=== PATIENT | male | born 1990 | race African-American/Black ===

== ENCOUNTER 2017-06-01 13:04 | Emergency (ER) | payer SELFPAY ==
[2017-06-01 13:19] VITALS: BP 134/77
[2017-06-01] MEDS ORDERED: MUPI15CR TP (13:30)
[2017-06-01] MEDS ORDERED: ACYC800T PO (13:30)
[2017-06-01] MEDS ORDERED: DIPHTH,PERTUSS(ACELL),TET TOX 0.5 ML DISP.SYRIN. VAX IM ONE (13:30)
[2017-06-01] MEDS ORDERED: SULF1TAB24 PO (13:30)
--- NOTE | 2017-06-01 13:31 | PHYS DOC ---
Past Medical History Past Medical History: No Pertinent History Past Surgical History: Appendectomy Alcohol Use: None Drug Use: None Adult General Chief Complaint Chief Complaint: INSECT BITE HPI HPI Patient is a 26 year old male who presents with an abscess on the left buttock for 2 days. Patient denies any fever. Denies any drainage from the area. Review of Systems Review of Systems Constitutional: Denies fever or chills [] Eyes: Denies change in visual acuity, redness, or eye pain [] HENT: Denies nasal congestion or sore throat [] Musculoskeletal: Denies back pain or joint pain [] Integument: abscess on the left buttock for 2 days Neurologic: Denies headache, focal weakness or sensory changes [] Endocrine: Denies polyuria or polydipsia [] Physical Exam Physical Exam Constitutional: Well developed, well nourished, no acute distress, non-toxic appearance. [] HENT: Normocephalic, atraumatic, bilateral external ears normal, oropharynx moist, no oral exudates, nose normal. [] Eyes: PERRLA, EOMI, conjunctiva normal, no discharge. [] Skin: Left buttock with an area approximately 2 x 2 centimeters. The area is firm. No fluctuance to the area. The area is warm tender to palpate. There is a couple grouped blisters on the center of the area making it suspicious for shingles that has developed into and abscess and cellulitis. Back: No tenderness, no CVA tenderness. [] Extremities: No tenderness, no cyanosis, no clubbing, ROM intact, no edema. [] Neurologic: Alert and oriented X 3, normal motor function, normal sensory function, no focal deficits noted. [] Psychologic: Affect normal, judgement normal, mood normal. [] Current Patient Data Vital Signs Vital Signs Date Time Temp Pulse Resp B/P (MAP) Pulse Ox O2 Delivery O2 Flow Rate FiO2 06/01/17 13:19 98.1 72 18 98 Room Air 98.1 EKG EKG [] Radiology/Procedures Radiology/Procedures [] Course & Med Decision Making Course & Med Decision Making Pertinent Labs and Imaging studies reviewed. (See chart for details) Patient has an area of the left buttock suspicious for an abscess with cellulitis that developed from shingles infection. He was discharged with Bactrim, Bactroban ointment, and acyclovir. Instructed to keep the area clean and dry. Given tetanus in the ED. Warm compresses recommended to the area. Dragon Disclaimer Dragon Disclaimer This electronic medical record was generated, in whole or in part, using a voice recognition dictation system. Departure Departure Impression: Primary Impression: Abscess of cellulitis of buttock Additional Impression: Shingles Disposition: 01 HOME, SELF-CARE Condition: STABLE Referrals: NO PCP (PCP) Follow-up with your doctor in 1-2 weeks Patient Instructions: Abscess, Cellulitis, Shingles, [id number] Additional Instructions: You were seen for an area of blistering that could have been shingles that has developed into an abscess with cellulitis. Keep the area clean and dry. Apply warm compresses to the area. Complete your oral antibiotics. Use the rest of the medications as ordered. Come back to the ED if symptoms worsen otherwise follow-up with your doctor in 1-2 weeks. Scripts Acyclovir (ACYCLOVIR) 800 Mg Tablet 1 TAB PO 5XDAY, #50 TAB Prov: AMARILIS TONG APRN 06/01/17 Mupirocin Calcium (BACTROBAN CREAM) 15 Gm Cream..g. 1 REJI TP TID, #30 GM You can give him Rx for Bactoban Ointment if cheaper than cream Prov: AMARILIS TONG APRN 06/01/17 Sulfamethoxazole/Trimethoprim (BACTRIM DS TABLET) 1 Each Tablet 1 TAB PO BID, #20 TAB Prov: AMARILIS TONG APRN 06/01/17 Problem Qualifiers Additional Impression: Shingles Herpes zoster complications: without complications Qualified Codes: B02.9 - Zoster without complications AMARILIS TONG APRN Jun 01, 2017 13:31
== END 2017-06-01 13:50 | disposition home or self-care (01) ==
LOC: ER 13:04
DX: L02.31 Cutaneous abscess of buttock (principal); B02.9 Zoster without complications
CPT/HCPCS: 90471; 90715; 99283-25